=== PATIENT | female | born 1985 | race Two or more races ===

== ENCOUNTER 2024-11-24 16:05 | Emergency (ER) | payer OTHER, SELFPAY ==
[2024-11-24 16:16] VITALS: BP 154/94
--- NOTE | 2024-11-24 18:05 | ED.GENMED ---
History of Present Illness
General
Chief Complaint: Musculo-Skeletal Complaint
Source: patient
Exam Limitations: none
Time Seen by Provider: 11/24/24 17:57
Nursing documentation reviewed up to this point in time: agreed with
History of Present Illness
History of Present Illness:
Patient presents to ED secondary to right wrist pain, when she lost balance and fell onto her outstretched hand. Denies previous similar injury. Patient otherwise has no complaints. Denies loss of sensation or weakness.
Review of Systems
Review of Systems
Allergies reviewed?: Yes
All Other Systems: ROS reviewed and negative except as documented in HPI and ROS
Constitutional: Reports no symptoms; Denies fever
Musculoskeletal: Reports other (Wrist pain with swelling)
Skin: Reports no symptoms
Neurological: Reports no symptoms; Denies weakness or numbness
Phy Exam
Physical Exam
Physical Exam:
Physical Exam
General: mild painful distress, not acutely ill. afebrile
Head: nc/at. eomi
Neck: supple. no meningeal signs.
Abdomen: normal bowel sounds. not tender.
Neuro: alert and oriented x 3. no focal neurological deficits
Skin: no rash
Psychiatric: well kept. interactive and cooperative
Extremities: no edema. no calf tenderness
Course
Orders/Labs/Results
Orders:
Orders
11/24/24 16:22
Wrist, Right 3 Views [CR Wrist - Right Min 3 Views] Urgent
Comment:
Reason For Exam: right wrist pain fell off stool while painting
11/24/24 18:05
Ibuprofen [Motrin] 400 mg PO NOW STA
Vital Signs
Initial and Last Documented VS:
Initial Vital Signs
Temp Pulse Resp BP Pulse Ox
98.0 F 60 16 154/94 98
11/24/24 16:16 11/24/24 16:16 11/24/24 16:16 11/24/24 16:16 11/24/24 16:16
Last Documented Vital Signs
Temp Pulse Resp BP Pulse Ox
98.0 F 60 16 154/94 98
11/24/24 16:16 11/24/24 16:16 11/24/24 16:16 11/24/24 16:16 11/24/24 18:07
MDM/Problems Addressed
MDM/Problems Addressed:
X-ray report reviewed and discussed with patient. Patient will be provided with a volar splint prior to discharge, with referral to orthopedic surgery for outpatient follow-up. Patient otherwise is afebrile and neurovascular intact, at time of
discharge, to the care of her family.
*Pulse Oximetry
SaO2: 98
Oxygen Mode of Delivery: Room air
Patient hypoxic: no
*Critical Care Note
Total Time (30-74mins, 75-104mins- exclusive of procedures): Not Applicable
ED Attending Note
-
Portions of this chart may have been created with voice recognition software.� Occasional wrong word or��sound alike� substitutions may have occurred due to the inherent limitations of voice recognition software.
Discharge Plan
Departure
Patient Disposition: Home (Routine Discharge)
Date of Disposition: 11/24/24
Time of Disposition: 18:07
Patient with high blood pressure during this ER visit?: Yes
Condition: Fair
Discharge Problem:
Fracture of wrist
Instructions: Wrist Fracture (DC)
Referrals:
Johny Landeros MD [Active, Orthopedics]
Gianna Molina CRNP [Family Provider]
Activity Restrictions/Additional Instructions:
As discussed, please follow-up with referred orthopedic surgeon for further evaluation and treatment.
Interventions
Interventions:
*Risk Screen - Suicide Last Done: 11/24/24 16:16
*Neglect/Abuse Screening Last Done: 11/24/24 16:16
*Nursing Disposition Last Done: 11/24/24 18:49
ED-Musculoskeletal Assessment Last Done: 11/24/24 17:03
Discharge Date and Time
Discharge Date/Time: 11/24/24 18:49
Print Language: SUDANESE
[2024-11-24] MEDS: MOTRIN 400 MG PO (18:29)
== END 2024-11-24 18:49 | disposition home or self-care (01) ==
LOC: EMR 16:05
PROVIDERS: EMERGENCY PHYSICIAN Emergency Medicine; FAMILY PHYSICIAN Nurse Practitioner Family
DX: S52.591A Other fractures of lower end of right radius, initial encounter for closed fracture (principal); W08.XXXA Fall from other furniture, initial encounter
CPT/HCPCS: 99283; 29125; 73110